=== PATIENT | female | born 1940 | race Caucasian/White ===

== ENCOUNTER 2021-01-12 09:38 | Day surgery (SDC) | payer MEDICARE, SELFPAY ==
[2021-01-03 08:09] VITALS: BMI 24.3
[2021-01-12] VITALS (16 sets, daily range): BP systolic 118–157; BP diastolic 63–80; PULSE 64–79; RESP 12–19; TEMP 36.2–37; O2SAT 95–99; BMI 24.3
--- NOTE | 2021-01-12 10:20 | SUR.PREOP ---
neuro checks show 5/5 strength lower extremities. denies pain at this time. states when walks has right sciatic and right leg pain. denies this at this time.
[2021-01-12] MEDS: LACTATED RINGERS 1,000 ML 42 ML IV ×2 (10:29→13:25)
[2021-01-12] MEDS: ACETAMINOPHEN 325 MG TABLET 975 MG PO (10:29)
[2021-01-12] MEDS: GABAPENTIN 300 MG CAPSULE PO (10:29)
--- NOTE | 2021-01-12 11:10 | PM.PREOP ---
Pre-operative Note COVID-19 COVID-19 status: Negative Result date/Date tested (Pos, Neg/Pending): 01/10/21 Interval Note History & Physical reviewed/Exam performed by Physician: Yes Changes to H&P: No
--- NOTE | 2021-01-12 12:00 | DI.RAD.S_ITS ---
PROCEDURE: XR LUMBAR SPINE 2-3V INDICATIONS: L5-S1 TLIF TECHNIQUE: 2 intraoperative spot fluoroscopic views of the lumbar spine were acquired. COMPARISON: [facility] Outside Film, MR, MR LUMBAR SPINE WITHOUT CONTRAST, 09/04/2020, 9:55. FINDINGS: Spot intraoperative fluoroscopic images demonstrate metallic posterior fusion hardware at the L5-S1 level. A disc spacer is also present at the same level. IMPRESSION: Metallic hardware visualized at the L5-S1 level. Dictated by: Mitul Up M.D. on 01/12/2021 at 15:17 Approved by: Mitul Up M.D. on 01/12/2021 at 15:18
[2021-01-12] MEDS: CEFAZOLIN 2 GM/20 ML SYRINGE IV (12:17)
--- NOTE | 2021-01-12 12:33 | SUR.OPER ---
Addendum entered by Jessica Strange R.N. 01/12/21 13:08: Gel pad placed in between heels. Original Note: Prone on spine table, head in foam head support, padded chest and pelvic supports, gel pad at knees, lower legs supported by pillows; nipples, genitalia and toes free of pressure, arms secured on foam padded arm boards at <90 degrees abduction. Tape over blanket at thigh secured to table.
[2021-01-12] MEDS: BUPIVACAINE 0.25% (PF) 30 ML, EPINEPHrine 0.3 MG INJ (12:35)
[2021-01-12] MEDS: BUPIVACAINE LIPOSOME 266 MG/20 ML VIAL INJ (12:36)
--- NOTE | 2021-01-12 14:14 | PM.OP.1 ---
Operative Date/Time/Diagnoses Date of procedure: 01/12/21 Time of procedure: 12:30 Pre-op diagnosis: 1. L5-S1 spinal stenosis 2. L5-S1 spondylosis with radiculopathy Post-op diagnosis: same Procedure & Clinicians Procedure: 1. L5-S1 Postero-lateral and posterior interbody fusion 2. L5-S1 interbody cage placement. 3. L5-S1 decompressive laminectomy with bilateral facetecomies 4. L5-S1 Posterior non-segmental instrumentation 5. [place] of bone marrow from iliac crest 6. Utilization of microsurgical technique and operating microscope Same procedure as scheduled: Yes Indications: Patient has been having chronic back pain and worsening lumbar radiculopathy. Patient failed multiple conservative management with worsening pain weakness and numbness in her lower extremity. Patient has been having difficulty performing activity of daily living. After discussing risks benefits of treatment options, patient elected proceed with surgery. Surgeon: Giovanny March Accounting Machine Operator: Alana Gallegos Click Yes if Unassisted: No Anesthesia Type: General Operative Notes Closure Type: primary Specimen(s): none sent Prosthetic devices, grafts, tissues, transplants, or devices: Globus revolve screws, Rise cage Estimated Blood Loss (mL): 50 Blood products transfused: none Procedure in detail: Patient was seen in the preoperative area. Risks and benefits of the surgery was discussed with the patient. Informed consent was obtained from the patient and placed in the chart. Surgical site was marked. Patient was taken to the operative room. General anesthesia was administered. Prophylactic antibiotic was given to the patient less than 30 min before the incision was made. Patient was placed into a prone position on the Silvestre table. Patient's back was then prepped and draped in the sterile fashion. Time-out was performed at this time. Using AP and lateral C-arm imaging the interval between L5-S1 was identified and marked on patient's back. A 2 inch incision 2 in from midline was made on the right side first. The fascia was incised in line with skin incision. Globus MARS retractors was placed inside the incision and docked onto the L5 lamina. Using microsurgical technique and operating microscope, a L5 laminectomy and L5-S1 facetectomy was performed using a Kerrison rongeur. The disc space at L5-S1 was identified. And a total diskectomy was performed at L5-S1 level. The endplates were decorticated using a rasp and shaver. The total diskectomy and decortication was performed at L5-S1 level in order to to accomplish a L5-S1 fusion. The local bone from the laminectomy and facetectomy was saved for local bone grafting. After the total diskectomy and decortication was completed, Trifecta bone graft material was combined with local bone that was harvested earlier. At this time, a separate skin is incision was made over the iliac crest. A Jamshidi needle was inserted into the iliac crest through a separate skin incision. 5 cc of bone marrow aspiration was obtained through the separate skin incision using a Jamshidi needle from the iliac crest. The bone marrow aspiration was combined with local bone and the Trifecta bone grafting material. The bone grafting material was placed into the L5-S1 interbody space along with a expandable cage. The cage was expanded to its maximum height using the torque limiting screwdriver. At this time a mirror image incision was made on the left side. The fascia was incised in line with the skin incision. Globus MARS retractor was inserted and docked onto the L5-S1 posterolateral gutter. Using the power drill, posterior-lateral decortication was performed at L5-S1 level until bleeding cortical bone was identified. The remaining bone grafting material was placed into the L5-S1 posterior lateral gutter he order to accomplish posterolateral fusion at the L5-S1 level. Using the double C-arm technique, pedicle screws were placed into the L5-S1 pedicles bilaterally. This was done by placing the Jamshidi needle into the pedicles, then placing the guidewires over the Jamshidi needle, and finally placing the cannulated screws over the guidewires bilaterally. After the pedicle screws were placed, 2 titanium rods was locked into the heads of the pedicle screws using locking caps and torque limiting screwdriver. After all the hardware was placed, and confirmed with AP and lateral C-arm imaging, the wound was then irrigated with sterile normal saline and packed with Ray-Anu gauze for 3 min to accomplish hemostasis. After the gauze was removed the deep fascia was closed with #1 Vicryl suture. The subcutaneous layer was closed with 2-0 Vicryl. The skin was closed with skin feroz. Patient tolerated the procedure well. There were no complications. Complications: none Post-operative Condition: stable Disposition: PACU Plan for aftercare: Admit to inpatient hospital
[2021-01-12] MEDS: fentaNYL 100 MCG/2 ML INJ IV ×4 (14:35→15:05)
[2021-01-12] MEDS: OXYCODONE IR 5 MG TABLET PO ×2 (14:50→20:30)
--- NOTE | 2021-01-12 15:50 | SUR.PHASEI ---
pacu: 1540-Met discharge criteria for floor transfer. vss. no complaints of pain at present.no nausea. tolerated ice chips,po fluids, & oral pain pill. no changes with csm ble and dressing to back. Report given to Floor RN via phone. Transfer on 2l nc o2 to room by bed with one belongings bag. In room 203. RN at bedside and care transferred.
[2021-01-12] MEDS: diazePAM 5 MG TABLET 2.5 MG PO (16:34)
[2021-01-12] MEDS: LACTATED RINGERS 1,000 ML 100 ML IV (17:47)
[2021-01-12] MEDS: HYDROMORPHONE 0.5 MG INJ 0.2 MG IV (17:51)
--- NOTE | 2021-01-12 18:14 | PC.NURSE ---
Patient to floor around 1545. She had a TLIF L5-S1, dressing is cdi, s any drainage. Patient given valium po 2.5mg and iv dilaudid for pain. She has LR at 100cc/hr infusing to iv. left for the evening. Patient voided before surgery and after surgery. She has not voided while being up here on the floor. IV dilaudid helpful for discomfort.
[2021-01-12] MEDS: ATORVASTATIN 20 MG TABLET 40 MG PO (20:12)
[2021-01-12] MEDS: METOPROLOL ER 25 MG TABLET PO (20:12)
[2021-01-12] MEDS: ZOLPIDEM 5 MG TABLET 10 MG PO (20:12)
[2021-01-12] MEDS: SENNOSIDES 8.6 MG TABLET 17.2 MG PO (20:12)
[2021-01-12] MEDS: CEFAZOLIN 1 GM VIAL IV (20:12)
[2021-01-12] MEDS: DOCUSATE 100 MG CAPSULE PO (20:12)
[2021-01-12] MEDS: hydrOXYzine pamoate 25 MG CAPSULE PO (20:30)
[2021-01-12] MEDS: FAMOTIDINE 20 MG TABLET 10 MG PO (23:12)
[2021-01-13] MEDS: OXYCODONE IR 5 MG TABLET PO ×3 (02:00→12:47)
[2021-01-13] MEDS: ACETAMINOPHEN 325 MG TABLET 650 MG PO ×2 (02:00→08:14)
[2021-01-13 04:00] VITALS: BP 140/75; PULSE 70; RESP 18; TEMP 36.8; O2SAT 95
[2021-01-13] MEDS: CEFAZOLIN 1 GM VIAL IV (04:20)
[2021-01-13 08:00] VITALS: BP 143/70; PULSE 67; RESP 14; TEMP 36.4; O2SAT 96
--- NOTE | 2021-01-13 08:07 | PC.NURSE ---
Assess- Patient sitting at the side of the bed by herself. Encouraged to calls us before she tries this the next time. Back dressing is cdi with a small amount of ss drainage that is dried. CMS wnl and ppx2. She denies any numbness or tingling and is ready for pain medication.
[2021-01-13] MEDS: LORATADINE 10 MG TABLET PO (08:13)
[2021-01-13] MEDS: DOCUSATE 100 MG CAPSULE PO (08:14)
--- NOTE | 2021-01-13 09:18 | PM.DS.1 ---
History of Present Illness History of Present Illness Date Patient Seen: 01/13/21 Time Patient Seen: 09:18 Chief complaint: Low back pain s/p TLIF Narrative: Patient is doing well this morning. She has minimal pain. She denies any new numbness or tingling down her legs. She has not worked with physical therapy yet. She is somewhat concerned because her is not best caregiver, but her daughter is coming in at midnight today to help care for her. Discharge Providers Provider Discharge Date: 01/13/21 Consults: 01/12/21 16:35 Consult to Occupational Therapy Evaluate & Treat Comment: Physician Instructions: Evaluate and treat Consult to Physical Therapy Evaluate & Treat Comment: Physician Instructions: Evaluate and Treat Discharge provider: Alana Gallegos PA-C Summary Hospital Course Discharge Diagnosis: 1. L5-S1 spinal stenosis 2. L5-S1 spondylosis with radiculopathy Hospital Course: Date of procedure: 01/12/21 Time of procedure: 12:30 Procedure & Clinicians Procedure: 1. L5-S1 Postero-lateral and posterior interbody fusion 2. L5-S1 interbody cage placement. 3. L5-S1 decompressive laminectomy with bilateral facetecomies 4. L5-S1 Posterior non-segmental instrumentation 5. [place] of bone marrow from iliac crest 6. Utilization of microsurgical technique and operating microscope Same procedure as scheduled: Yes Indications: Patient has been having chronic back pain and worsening lumbar radiculopathy. Patient failed multiple conservative management with worsening pain weakness and numbness in her lower extremity.? Patient has been having difficulty performing activity of daily living.? After discussing risks benefits of treatment options, patient elected proceed with surgery. Surgeon: Giovanny March Leather Polisher: Alana Gallegos Click Yes if Unassisted: No Anesthesia Type: General Operative Notes Closure Type: primary Specimen(s): none sent Prosthetic devices, grafts, tissues, transplants, or devices: Globus revolve screws, Rise cage Estimated Blood Loss (mL): 50 Blood products transfused: none Status at Discharge Cognitive/behavioral status at discharge: oriented Functional status at discharge: uses cane/walker Overall status at discharge: patient is progressing back to baseline Exam Vital Signs (past 8 hours): - 01/13/21 04:00 01/13/21 08:00 Temperature 98.3 F 97.5 F L Pulse Rate 70 67 Respiratory Rate 18 14 Blood Pressure 140/75 143/70 H Pulse Oximetry 95 96 Oxygen Delivery Method Nasal Cannula Oxygen Flow Rate 0 Narrative Exam Narrative: Pleasant 81-year-old female, resting comfortably in bed, no acute distress. Dressing demonstrates a small area of bloody discharge on the right side of the incision. No surrounding erythema, induration or ecchymosis. Bilateral lower extremities: Motor function grossly intact, sensation grossly intact to light touch, calves soft, nontender to palpation. [facility] Medical History Anxiety BCC (basal cell carcinoma) CAD (coronary artery disease) Eczema GERD (gastroesophageal reflux disease) History of breast implant removal HLD (hyperlipidemia) HTN (hypertension) Hx of ectopic Sciatica Scoliosis Seasonal allergies Surgical History Hx of abdominoplasty Hx of breast augmentation Hx of cholecystectomy Social History household members: spouse Smoking Status: Never smoker alcohol intake: current Discharge Assessment & Plan Assessment and Plan Assessment: Stable status post TLIF Plan of Treatment: -mobilize with PT. Limit bending, lifting, twisting. Weightbearing as tolerated with front wheel walker -continue with current pain regimen -possible DC home today if cleared by 2 sessions of PT and patient is safe, otherwise disposition home tomorrow -today is the patient's birthday Discharge Plan Discharge Plan Patient Disposition: Home Discharge orders & Medications Discharge Orders: Discharge (Order); Ordered 01/13/21 Ordered By: Alana Gallegos Prescriptions: New acetaminophen 500 mg capsule 500 mg PO Q4H PRN (Reason: Pain, Mild (1-3)) Qty: 90 0RF docusate sodium 100 mg Capsule 100 mg PO BID PRN (Reason: Constipation from narcotic pain meds) Qty: 30 0RF hydroxyzine pamoate 25 mg Capsule 25 mg PO Q4HR PRN (Reason: Itching, spasms, pain, nausea) Qty: 60 0RF oxycodone 5 mg Tablet 5 mg PO Q4H PRN (Reason: Pain, Moderate (4-6)) Qty: 42 0RF Continued atorvastatin 40 mg Tablet 40 mg PO BEDTIME 0RF aspirin [Aspirin Low Dose] 81 mg Tablet,Delayed Release (Dr/Ec) 81 mg PO BEDTIME 0RF metoprolol succinate 25 mg Tablet Extended Release 24 Hr 25 mg PO BEDTIME 0RF zolpidem 10 mg Tablet 10 mg PO BEDTIME 0RF diazepam 5 mg Tablet 2.5 - 5 mg PO DAILY PRN (Reason: Anxiety) 0RF Pepcid Complete 10-800-165 mg Tablet,Chewable 1 tab PO BID PRN (Reason: Reflux) 0RF Zyrtec 10 mg Capsule 10 mg PO QD-BID 0RF Discontinued acetaminophen 650 mg Tablet Extended Release 1,300 mg PO Q8H PRN (Reason: Pain) 0RF Label Comments: 4 weeks ago Follow up/Referrals: Giovanny March MD [Physician] - (10-14 days for postoperative visit) Diet/Activity/Treatments Diet: Diet as Tolerated and Regular Other treatments: Medications: -OTC Tylenol 500 mg 1 tablet every 4 hours as needed for pain/fever. Max 6 tablets per day. -Oxycodone 5 mg take 1-2 tablets every 4 hours as needed for moderate-severe pain (narcotic pain medication). -As needed medications: -Ducolax and /or MiraLax as needed for constipation from narcotic pain medications. -Pepcid AC as needed for stomach upset. -Vistaril (hydroxyine) 25mg 1 tab every 4 hours as needed for spasms/pain/nausea. Dressing/Wound care: -Keep dressing in place until postoperative follow-up office visit. -Okay to shower. Keep wound out of direct water stream. Can use PressNSeal plastic wrap to protect from shower stream. No soaking or submerging until all the scabs fall off (approximately 6 weeks). -Please call the office if dressing becomes wet, soiled, or saturated. Activities: -Limit bending, lifting, twisting. -Weight-bearing as tolerated. Use front wheeled walker, and progress to cane when safe. -Continue with home exercises as directed by your physical therapist. -Ice your incision as needed for pain/inflammation/swelling. Protect your skin with a folded pillowcase. Follow-up: -Follow-up with your surgeon or PA in the office in 10-14 days after surgery. -Follow-up with your surgeon 6 weeks postoperatively. Call the office if you have chest pain, shortness of breath, significant swelling that will not resolve with elevating, fever over 101?, significantly worsening pain. [facility]: [phone] Skin/Wound/Dressing Care Report to your healthcare provider any signs of infection, such as:: chills, fever, night sweats, unusual drainage and unusual redness Visit Report/Discharge Packet Instructions: DI for Transforaminal Lumbar Interbody Fusion Stand Alone Forms: Surgery Discharge Discharge Data Attending Provider: Giovanny March VTE Deep Vein Thrombosis/Pulmonary Embolism Present on Admission: No
--- NOTE | 2021-01-13 10:37 | PT.IIE ---
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, lumbar region (01/12/21) Surgery Performed Operation Date: 01/12/21 11:15 Actual Procedures p L5-S1 TLIF(Not Applicable) - Giovanny March MD Medical History (Last Reviewed 01/13/21 @ 09:20 by Alana Gallegos PA-C) Anxiety BCC (basal cell carcinoma) CAD (coronary artery disease) Eczema GERD (gastroesophageal reflux disease) History of breast implant removal HLD (hyperlipidemia) HTN (hypertension) Hx of ectopic Sciatica Scoliosis Seasonal allergies Physical Therapy Inpatient Evaluation/Re-Eval M1 PT/OT-IP Prior Functional Status Start: 01/13/21 07:46 Freq: Status: Active Protocol: Document 01/13/21 10:00 MB (Rec: 01/13/21 10:37 MB [id number]) Medical Review Prior Functional Status Medical History Reviewed Yes Diet/Fluid Consistency Regular Communication WNLs Mobility and Gait Gait without AD Activities of Daily Living and IADL's I Social History Household Members spouse Living Arrangements House Number of Floors (Floors) One Floor Number of Stairs To Enter/Railing? 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 and they hope to leave for the winter M2 PT-IP Current Condition Start: 01/13/21 07:46 Freq: Status: Active Protocol: Document 01/13/21 10:00 MB (Rec: 01/13/21 10:37 MB [id number]) Physical Therapy Current Condition Current Condition Evaluation Date 01/13/21 Treatment Diagnosis L5-S1 fusion Onset Date 01/12/21 M3 PT-IP Subjective Start: 01/13/21 07:46 Freq: Status: Active Protocol: Document 01/13/21 10:00 MB (Rec: 01/13/21 10:37 MB [id number]) Subjective Physical Therapy Visit Type Type Initial Evaluation Visit Start Time 10:00 Visit Stop Time 10:23 Total Visit Minutes 23 Number of COMMERCIAL DRIVER'S LICENSE DRIVER Visits 0 Physical Therapy Visit Comments Patient Comments Pt is urgent about needing to go to the bathroom to urinate upon PT arrival Patient Goals To go home Therapy Pain Assessment Pain When Pain Assessed At Rest Pain Present Pain Present Denied Pain M4 PT-IP Mobility and Gait Start: 01/13/21 07:46 Freq: Status: Active Protocol: Document 01/13/21 10:00 MB (Rec: 01/13/21 10:37 MB [id number]) PT-Bed Mobility Assessment Rolling Type of Rolling Log Rolling,Bilateral Level of Assist Independent Supine to Sit Supine to Sit Independent Sit to Supine Sit to Supine Independent Scooting Scooting to Edge of Bed Independent PT-Transfer Assessment Sit to and From Stand Sit to and from Stand Independent,Standby Assistance Equipment Transfer Assistive Device Gait Belt,Front Wheeled Walker Orthotic/Prosthetic Devices or Brace: No Transfers Transfer Destination Toilet Transfer Technique Stand Step Pivot Transfer Ability Level of Assist Independent,Use of Upper Extremities Comments Mobility Comments Multiple trials of log rolling and sit to stand to make sure she can perform I. Initially, cues and rail for right rolling and then I without rails. Similarly, initially cues to push up from the bed and not from the walker and then she transfers I to and from toilet and with second bed mobility exercise. Gait Assessment Gait Gait Assistance Required: Standby Assistance Distance (Feet) 75 Assistive Devices Assistive Device Gait Belt,Front Wheeled Walker Orthotic/Prosthetic Devices or Brace: No Gait Deviations General Gait Pattern Flexed Trunk Factors Limiting Gait Function Factors Limiting Gait Function Decreased Activity Tolerance Comments Gait Comments First time gait training after surgery and so SBA with RW and pt gait trains slowly and with care. Gait improves upon returning to room from steps and her elvia is quicker. Stair Climbing Assessment Evaluation Level of Assist On Stairs Independent,Standby Assistance Devices Stair Climbing Assistive Devices Left Railing Technique/Endurance Stair Climbing Direction Ascend and Descend Stair Climbing Technique Step Over Step Number of Steps Climbed 3 Query Text: Stair Climbing Set # Repetitions (reps) 2 Comments Stair Climbing Comments First time, SBA and second time, I with use of rail. PT did cue pt to use the left rail only. PT-Balance Assessment Sitting Balance and Reactions Static Sitting Balance Ability Normal Dynamic Sitting Balance Ability Normal Standing Balance and Reactions Static Standing Balance Ability Good Dynamic Standing Balance Ability Good Device Used RW M5 PT-IP Objective Assessments Start: 01/13/21 07:46 Freq: Status: Active Protocol: Document 01/13/21 10:00 MB (Rec: 01/13/21 10:37 MB [id number]) Orientation Orientation/Cognition Level of Alertness Alert Orientation Name,Age,Birthday,Month,Date, Year,Day of Week,Place, Situation Language Function Ability No Deficits Noted Safety Awareness Understands Safety Issues Memory Description No Deficits Noted Gross Range of Motion Upper Extremity ROM Assessment Within Functional Limits Lower Extremity ROM Assessment Within Functional Limits Strength Upper Extremity Strength Assessment Within Functional Limits Lower Extremity Strength Assessment Within Functional Limits Comments Strength Comments MMT ankle DF and great toe extension only and 5/5 with legs out in front Sensation Assessment Sensation Gross Sensation WNL Muscle Tone Muscle Tone WNL Yes M6 PT-IP Treatment Start: 01/13/21 07:46 Freq: Status: Active Protocol: Document 01/13/21 10:00 MB (Rec: 01/13/21 10:37 [id number]) Physical Therapy Treatment Education Education Provided Precautions,Post-Op Packet, Safety Other Treatments Other Treatment Performed Provided back booklet and education about BLT, log rolling, d/c recommendations, put piece of paper with back precautions up on the wall M7 PT-IP Assessment and Plan Start: 01/13/21 07:46 Freq: Status: Active Protocol: Document 01/13/21 10:00 MB (Rec: 01/13/21 10:37 [id number]) PT Summary Assessment and Plan Potential Rehabilitation Potential Good Status of Condition at Evaluation Stable Summary Assessment Summary Pt is an 81 y/o female presenting first day post-op L5-S1 fusion and she is moving well with log rolling, transfers and gait. She performs toileting hygiene including don and doff of adult brief. She is able to ascend and descend 3 steps with 1 rail x2 and she gaits trains well with RW. Anticipate d/c today. Frequency of Treatment Frequency Of Treatment Discharge Precautions Lumbar Precautions Log Roll,No Twisting,Limit Bending,Lifting Restriction of 10 lbs,Gait Belt above Incisional Area Recommendations To Nursing Amount of Assist Needed Standby Assistance Discharge Recommendations PT Discharge Recommendations Home with Assistance, Outpatient PT Transportation Needs at Discharge Private Vehicle
--- NOTE | 2021-01-13 11:27 | OT.IP.EVAL ---
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, lumbar region (01/12/21) Surgery Performed Operation Date: 01/12/21 11:15 Actual Procedures p L5-S1 TLIF(Not Applicable) - Giovanny March MD Past Medical History (Last Reviewed 01/13/21 @ 09:20 by Alana Gallegos PA-C) Anxiety BCC (basal cell carcinoma) CAD (coronary artery disease) Eczema GERD (gastroesophageal reflux disease) History of breast implant removal HLD (hyperlipidemia) HTN (hypertension) Hx of abdominoplasty Hx of breast augmentation Hx of cholecystectomy Hx of ectopic Sciatica Scoliosis Seasonal allergies Surgical History (Last Reviewed 01/13/21 @ 09:20 by Alana Gallegos PA-C) Hx of abdominoplasty Hx of breast augmentation Hx of cholecystectomy Occupational Therapy Inpatient Evaluation/Re-Eval M1 PT/OT-IP Prior Functional Status Start: 01/13/21 07:46 Freq: Status: Active Protocol: Document 01/13/21 10:55 [facility] (Rec: 01/13/21 12:24 [facility] [id number]) Medical Review Prior Functional Status Medical History Reviewed Yes Diet/Fluid Consistency Regular Communication WNLs Mobility and Gait Gait without AD Activities of Daily Living and IADL's Pt states needing increased time for ADL's due to back pain. Social History Household Members spouse Living Arrangements House Number of Floors (Floors) One Floor Number of Stairs To Enter/Railing? 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 and they hope to leave for the winter M2 OT-IP Current Condition Start: 01/13/21 12:09 Freq: Status: Active Protocol: Document 01/13/21 10:55 [facility] (Rec: 01/13/21 12:24 [facility] [id number]) Occupational Therapy Current Condition Current Condition Evaluation Date 01/13/21 Treatment Diagnosis s/p L5-S1 TLIF Diagnosis Onset Date 01/12/21 Post Operative Precautions Lumbar Precautions Log Roll,No Twisting,Limit Bending,Lifting Restriction of 10 lbs,Gait Belt above Incisional Area M3 OT- IP Subjective and Pain Start: 01/13/21 12:09 Freq: Status: Active Protocol: Document 01/13/21 10:55 [facility] (Rec: 01/13/21 12:24 [facility] [id number]) OT- Subjective Occupational Therapy Visit Type Type Initial Evaluation Visit Start Time 10:55 Visit Stop Time 11:27 Total Visit Minutes 32 Occupational Therapy Visit Comments Patient Comments Pt's present for the end of OT eval. Patient/Caregiver Goals To go home. OT Pain Assessment Pain When Pain Assessed At Rest Pain Present Pain Present Denied Pain M4 OT- IP ADL's Start: 01/13/21 12:09 Freq: Status: Active Protocol: Document 01/13/21 10:55 [facility] (Rec: 01/13/21 12:24 [facility] [id number]) OT ADL-Grooming General Evaluation Grooming Ability Standby Assistance Areas Needing Assistance Retrieving/Set-up of Grooming Items OT ADL-Oral Care General Eval Oral Care Ability Standby Assistance Comments Oral Care Comments vc to spit into a cup to best follow her back precautions. OT ADL-Dressing Comments OT Dressing Comments Pt insistent that her will be able to assist her as pt does not wear socks. Pt not interested in any adaptive equipment at this time. OT ADL-Toileting Comments OT Toileting Comments Pt states did buy brief/pads to wear at night and not open to having a BSC as pt has to use the bathroom at night 4x. Pt states will be fine. Suggested to pt's to be sure to get up with her for safety. OT ADL-Bathing Comments OT Bathing Comments Suggested pt have a shower chair to use, pt states that her shower is too small . Also suggested able to put FWW in the shower to assist if needed and best to have her assist for showering needs. M5 OT- IP IADL's Start: 01/13/21 12:09 Freq: Status: Active Protocol: Document 01/13/21 10:55 [facility] (Rec: 01/13/21 12:24 [facility] [id number]) OT-Instrumental Activities of Daily Living Home Safety Awareness Awareness of Need for Assistance at Home Good Awareness Ability to Problem Solve Emergency Able to Problem Solve Situations Home Safety Comments Pt's will be home to assist pt as needed. Emphasized to pt to be sure she and her communicate well for her needs . M6 OT- IP Functional Cognition Start: 01/13/21 12:09 Freq: Status: Active Protocol: Document 01/13/21 10:55 [facility] (Rec: 01/13/21 12:24 [facility] [id number]) Cognitive Factors Limiting Selfcare Function Cognitive Ability Level of Alertness Alert Patient Orientation Name,Age,Birthday,Month,Date, Year,Day of Week,Place, Situation Attention Span Ability Capable of Focused Attention, Capable of Sustained Attention Ability to Follow Commands Able to Follow Multi-Step Commands Safety Awareness Decreased Recall of Precautions,Decreased Ability to Apply Precautions, Underestimates Need for Assistance Cognitive Comments Cognitive Assessment Comments Pt a bit impulsive and needing cues to slow down and to be sure to incorporate her back precautions for ADl and mobility needs. OT- Vision and Hearing OT- Hearing Assessment OT- Hearing Assessment WFL M7 OT- IP Mobility and Balance Start: 01/13/21 12:09 Freq: Status: Active Protocol: Document 01/13/21 10:55 [facility] (Rec: 01/13/21 12:24 [facility] [id number]) OT- Bed Mobility Assessment Rolling Level of Assistance Standby Assistance Supine to Sit Supine to Sit Assist Standby Assistance OT-Transfer Assessment Sit to and From Stand Sit to and from Stand Standby Assistance Transfers Transfer Ability Standby Assistance Technique Transfer Destination Bed,Chair Devices Transfer Assistive Devices None,Gait Belt,Front Wheeled Walker Comments Mobility Comments Pt able to move without FWW, but appears steadier with FWW and also helps to remind pt to follow her back precautions. Able to simulate getting a high SUV via bed raised up and pt able to do so, however would benefit from use of a step stool and assist from . OT- Balance Assessment Sitting Balance and Reactions Static Sitting Balance Ability Normal Dynamic Sitting Balance Ability Good Standing Balance and Reactions Static Standing Balance Ability Good Dynamic Standing Balance Ability Fair M9 OT- IP Assessment and Plan Start: 01/13/21 12:09 Freq: Status: Active Protocol: Document 01/13/21 10:55 [facility] (Rec: 01/13/21 12:24 [facility] [id number]) OT Summary Assessment and Plan Potential Rehabilitation Potential Good Analytic Complexity at Evaluation Low Summary OT Impairments Pain,Functional Mobility, Dressing,Toileting,Bathing, Toilet Transfers,Shower Transfers Progress Towards Goals Progressing Toward Goals Assessment Summary Pt low complexity and main barriers is pt needing to slow down and consciously incorporate her back precautions and to be sure to communicate with her if she needs assist. Goals Dressing Goal Minimal Assistance Toileting Goal Independent Bathing Goal Standby Assistance Toilet Transfer Goal Independent Shower Transfer Goal Independent Patient/Caregiver Education Goal Demonstrate Post-Op Precautions Days to Meet Goals 1 Frequency of Treatment Frequency Of Treatment Once a Day Treatment Plan OT Treatment Plan ADL Training,Functional Mobility,Patient/Family Education,Discharge Planning Discharge Recommendations OT Discharge Recommendations Home with 24/ Assist Available Transportation Needs at Discharge Private Vehicle
--- NOTE | 2021-01-13 12:23 | CM.DANOTE ---
DCP Assessment: Patient is an 81 yr old female who was admitted for TLIF preformed by Dr. March. CM met with the patient at the bedside and explained role. Patient was alert and oriented x4 at time of CM visit. magdi currently lives with her emily in a single story home in [place]. patients daughter is flying in [facility] to help her mother with her recovery. patient has a FWW and an elevated toilet seat at home to assist her with her recovery. Patient is independent and drives at baseline. PT recommends home with stand by assist. and patients will be driving her home when medically ready for dc I: Medicare and AARP Plan: DC home with and daughter no identified DC planning needs noted. Jennifer Limon RN Case Manger Discharge Planning/Care Management Discharge Assessment Start: 01/13/21 12:21 Freq: Status: Active Protocol: Document 01/13/21 12:22 [facility] (Rec: 01/13/21 12:23 [id number]) Discharge Planning Assessment Assigned Business Project Manager Jennifer limon RNunit manager DPOA/Assigned Designee Name Emily Santos ( ) Contact Information [phone] Advance Directives? Yes Advance Directives on File No History Provided By Patient,Medical Record Prior Living Arrangements House Household Members spouse Type of transporation used prior to Drives own vehicle admit Independent with ADL's Yes Is patient alert and oriented? Yes Caregiver for Another No Barriers to Discharge No Discharge Plan Home Referrals Initiated None needed Whiteboard Updated in Patient Room with Yes name and ext. # of Business Project Manager Review Status In Process Next Review Type Continued Stay Review Pre-Anesthesia Assessment Start: 01/03/21 08:09 Freq: Status: Complete Protocol: Document 01/03/21 08:09 [facility] (Rec: 01/03/21 09:40 [facility] [id number]) Pre-Anesthesia Assessment Patient Information Reviewed Via Phone Assessment Assessment Completed With Patient Diagnostic Results BMP/CMP,CBC,EKG Comment Outside labs/EKG [facility] Primary Care Provider James Herrera Seen Specialist in Last 12 Months Yes Specialist Seen Sand Mill Operator Core Sand,Associate Programmer Analyst, Orthopedist Primary Language Wolof Director Private Required No Height 165.1 cm Weight 66.224 kg Body Mass Index (BMI) 24.3 Hearing Ability Normal Visual Assist Magnifying Glass Dentition Type Teeth, Natural Present Barriers to Learning None Hx Anesthesia Reactions No Hx Family Anesthesia Reaction No Hx Malignant Hyperthermia No Hx Blood Transfusions No Anesthesia Review Requested No Autoclave Operator Yes: unable to care for pt, pt wants to DC to SNF in [place] alcohol intake current alcohol intake frequency 0-2 drinks per day Smoking Status Never smoker Substance Use Type does not use Pain Present Pain Reported Musculoskeletal Symptoms Abnormal Gait,Back Pain, Difficulty Walking,Limited Range of Motion,Numbness, Radiating Pain into Limb History of Falling (Recent or History of No ) Patient is completely paralyzed or No completely immobile Mental Status Oriented to own ability Is patient on oxygen? No Does patient have CORDERO/SOB No Hx Sleep Apnea No Currently Taking a Beta Zenia Yes: Metoprolol Hx Chest Pain No Hx SOB No Hx Syncope or Dizziness No Anti-Coagulant Therapy Yes: [id number] to hold 7 days prior per cardiology Has a Sand Mill Operator Core Sand Yes: Dr. Lee-Calif 12/15/20- scanned Cardiac Testing No Hx Pacemaker/ICD No Pacemaker Rep Required? No Cardiac Clearance Received Yes Diet Type At Home Regular,Low Carb dysphagia No Gastrointestinal Symptoms Retching Bladder Pattern Frequency Urinary Catheter Present No Hx Urinary Self Catheterization No Diabetes No Patient No Lactating No Hx Drug Resistant Organism No Presence of External or Internal Medical No Devices Have you had any close contact with No someone diagnosed with COVID-19? Received a COVID vaccine? Yes Received all doses? Yes Marital Status Lives With spouse Prior Living Arrangements House Number of Floors (Floors) Two Floors Support System Spouse Does the Patient Have Assistance After No: Spouse unable to provide Surgery care, wants to DC SNF in [place] Patient Discharge Plan Description Return Home Comment Pt advised 2-3 day length of stay per surgeon Feels Safe in Current Environment Yes Been Physically Hurt or Threatened By a No Person in Current Environment Do you have thoughts of harming yourself None or others? Are you currently considering suicide? No Do you have a plan to hurt yourself or No Plan others? Do You Have Any Spiritual Beliefs That No May Affect Your HC Choices? Do You Have Any Cultural Practices That No May Affect Your HC Choices? Comment Congregational Who Can We Speak to About Patient's Care Family only Identifying Code for Release of Patient Declines to issue Information Health Care Proxy/Next of Kin Emily () Health Care Proxy Emergency Contact Name Emily () Emergency Contact Advance Directives? Yes Advance Directives on File No Power of Station Gateman Yes Power of Station Gateman Name Emily () Power of Station Gateman PAC Instructions Durable medical equipment, Medications to take/avoid, Nasal antibiotic,No ETOH/ petroleum product on skin DOS, NPO,Post-op transportation,Pre -surgical wash,Sturdy shoes/ comfortable clothes,Do not bring valuables and remove jewelry
== END 2021-01-13 13:10 | disposition home or self-care (01) ==
LOC: OR 15:46 → AC 15:48
PROVIDERS: Referring Provider Orthopaedic Surgery Orthopaedic Surgery of the Spine; Visit Provider Orthopaedic Surgery Orthopaedic Surgery of the Spine
PROC: (CPT 22633; principal; 2021-01-12 11:15)
DX: M48.062 Spinal stenosis, lumbar region with neurogenic claudication (principal); M47.26 Other spondylosis with radiculopathy, lumbar region; I10 Essential (primary) hypertension; I25.10 Atherosclerotic heart disease of native coronary artery without angina pectoris; K21.9 Gastro-esophageal reflux disease without esophagitis; F41.9 Anxiety disorder, unspecified; M41.56 Other secondary scoliosis, lumbar region
CPT/HCPCS: 22633; 63047; 20939; 22853; 22840; 72100; 76000; 82962; 97161; 97165; 97530; 97535; C1776; A9270; C9290; J0171; J0330; J0690; J1100; J1170; J2405; J2704; J3010